=== PATIENT | male | born 1960 | race Caucasian/White ===

== ENCOUNTER 2019-12-12 11:24 | Inpatient (IN) | payer OTHER, SELFPAY ==
[~2019-12-12] VITALS: Ht 175.3 cm; Wt 140.2 kg
[2019-12-12 12:08] LABS: BASOPHIL % 0.8 % (0-2); PLATELET COUNT 178 x10^3mcL (130-400); RED CELL DISTRIBUTION WIDTH 13.3 % (11.5-14.5)
[2019-12-12 12:31] LABS: CALCIUM 8.8 mg/dL (8.5-10.1); CARBON DIOXIDE 25.2 mmol/L (21-32); CHLORIDE SERUM 93 mmol/L (98-107); CREATININE SERUM 0.9 mg/dL (0.7-1.3); GFR1 > 60 mL/min; GLUCOSE SERUM 116 mg/dL (74-106); POTASSIUM SERUM 3.7 mmol/L (3.5-5.1); SODIUM SERUM 129 mmol/L (136-145)
[2019-12-12 12:37] LABS: ALBUMIN 3.6 g/dL (3.4-5.0); ALKALINE PHOSPHATASE 54 U/L (46-116); ALT/SGPT 81 U/L (16-63); AST/SGOT 61 U/L (15-37); BILIRUBIN TOTAL 0.5 mg/dL (0.20-1.00); TOTAL PROTEIN, SERUM 7.3 g/dL (6.4-8.2)
[2019-12-12 12:41] LABS: UA SPECIFIC GRAVITY 1.025 (1.005-1.035); microscopic required? YES; urine erythrocyte TRACE (NEGATIVE)
[2019-12-12 12:58] LABS: AMPHETAMINE QUAL UR NONE DETECTED (See below)
[2019-12-12 13:03] LABS: CK-MB 0.9 ng/mL (0-3.6)
[2019-12-12 14:38] LABS: C REACTIVE PROTEIN 4.9 mg/dL (<=0.9); MAGNESIUM 1.9 mg/dL (1.8-2.4)
[2019-12-12 14:39] LABS: CHOLESTEROL/HDL RATIO 2.6
[2019-12-12 15:40] VITALS: Ht 175.3 cm; Wt 140.2 kg
[2019-12-12 15:56] VITALS: BP 133/75
[2019-12-12 21:06] VITALS: BP 135/82
[2019-12-13] VITALS (8 sets, daily range): BP systolic 105–141; BP diastolic 52–85
[2019-12-13] MEDS ORDERED: BAYER ASPIRIN R81 MG PO (14:28)
[2019-12-13] MEDS ORDERED: PLAVIX75 M1 PO (14:29)
[2019-12-13] MEDS ORDERED: LIPITOR40 MG PO (14:30)
[2019-12-13] MEDS ORDERED: V5 PO (14:30)
[2019-12-13] MEDS ORDERED: METFORMIN HCL1000 M2 PO (14:31)
[2019-12-13] MEDS ORDERED: TOPROL XL100 MG PO (14:33)
[2019-12-13 18:28] LABS: ALBUMIN 3.1 g/dL (3.4-5.0); BILIRUBIN DIRECT 0.2 mg/dL (0.0-0.2); BILIRUBIN TOTAL 0.51 mg/dL (0.20-1.00); TOTAL PROTEIN, SERUM 7.6 g/dL (6.4-8.2)
[2019-12-14] VITALS (8 sets, daily range): BP systolic 92–140; BP diastolic 53–68
[2019-12-14 07:34] LABS: PLATELET COUNT 193 x10^3mcL (130-400); RED CELL DISTRIBUTION WIDTH 13.1 % (11.5-14.5)
[2019-12-14 07:58] LABS: BASOPHIL % 0 % (0-2)
[2019-12-14 08:23] LABS: CALCIUM 9.2 mg/dL (8.5-10.1); CARBON DIOXIDE 26.8 mmol/L (21-32); CHLORIDE SERUM 97 mmol/L (98-107); CREATININE SERUM 0.7 mg/dL (0.7-1.3); GFR1 > 60 mL/min; GLUCOSE SERUM 109 mg/dL (74-106); PHOSPHOROUS 2.9 mg/dL (2.5-4.9); POTASSIUM SERUM 3.6 mmol/L (3.5-5.1); SODIUM SERUM 133 mmol/L (136-145)
[2019-12-14 08:25] LABS: BILIRUBIN DIRECT 0.14 mg/dL (0.0-0.2); BILIRUBIN TOTAL 0.4 mg/dL (0.20-1.00); TOTAL PROTEIN, SERUM 6.7 g/dL (6.4-8.2)
[2019-12-14 08:26] LABS: ALBUMIN 3.1 g/dL (3.4-5.0)
[2019-12-15 06:02] VITALS: BP 95/54
[2019-12-15 07:08] LABS: BILIRUBIN DIRECT 0.17 mg/dL (0.0-0.2); BILIRUBIN TOTAL 0.5 mg/dL (0.20-1.00); TOTAL PROTEIN, SERUM 6.8 g/dL (6.4-8.2)
[2019-12-15 07:23] LABS: CALCIUM 9.5 mg/dL (8.5-10.1); CARBON DIOXIDE 30.3 mmol/L (21-32); CHLORIDE SERUM 98 mmol/L (98-107); CREATININE SERUM 0.7 mg/dL (0.7-1.3); GFR1 > 60 mL/min; GLUCOSE SERUM 94 mg/dL (74-106); MAGNESIUM 2.2 mg/dL (1.8-2.4); PHOSPHOROUS 3.7 mg/dL (2.5-4.9); POTASSIUM SERUM 3.6 mmol/L (3.5-5.1); SODIUM SERUM 135 mmol/L (136-145)
[2019-12-15 07:30] LABS: ALBUMIN 2.7 g/dL (3.4-5.0)
[2019-12-15 09:03] VITALS: BP 97/43
[2019-12-15 09:19] LABS: BASOPHIL % 0.1 % (0-2); PLATELET COUNT 219 x10^3mcL (130-400); RED CELL DISTRIBUTION WIDTH 13.7 % (11.5-14.5)
[2019-12-15 12:55] VITALS: BP 118/70
[2019-12-15 17:22] VITALS: BP 114/81
[2019-12-15 21:12] VITALS: BP 120/61
[2019-12-16 05:24] VITALS: BP 106/46
[2019-12-16 07:05] LABS: BASOPHIL % 0.1 % (0-2); PLATELET COUNT 289 x10^3mcL (130-400); RED CELL DISTRIBUTION WIDTH 13.5 % (11.5-14.5)
[2019-12-16 07:32] LABS: CALCIUM 9.3 mg/dL (8.5-10.1); CHLORIDE SERUM 97 mmol/L (98-107); CREATININE SERUM 0.7 mg/dL (0.7-1.3); GFR1 > 60 mL/min; GLUCOSE SERUM 88 mg/dL (74-106); POTASSIUM SERUM 3.1 mmol/L (3.5-5.1); SODIUM SERUM 135 mmol/L (136-145)
[2019-12-16 07:49] LABS: BILIRUBIN DIRECT 0.17 mg/dL (0.0-0.2); BILIRUBIN TOTAL 0.5 mg/dL (0.20-1.00); TOTAL PROTEIN, SERUM 7.2 g/dL (6.4-8.2)
[2019-12-16 08:11] VITALS: BP 103/83
[2019-12-16 08:12] LABS: ALBUMIN 2.9 g/dL (3.4-5.0)
[2019-12-16 12:53] VITALS: BP 114/80
[2019-12-16 16:11] VITALS: BP 126/78
[2019-12-16 19:30] VITALS: BP 92/59
[2019-12-17 06:03] VITALS: BP 107/72
[2019-12-17 07:15] LABS: C REACTIVE PROTEIN 3.6 mg/dL (<=0.9); CALCIUM 8.7 mg/dL (8.5-10.1); CARBON DIOXIDE 24.9 mmol/L (21-32); CHLORIDE SERUM 100 mmol/L (98-107); CREATININE SERUM 0.7 mg/dL (0.7-1.3); GFR1 > 60 mL/min; GLUCOSE SERUM 98 mg/dL (74-106); POTASSIUM SERUM 3.1 mmol/L (3.5-5.1); SODIUM SERUM 132 mmol/L (136-145)
[2019-12-17 07:17] LABS: RED CELL DISTRIBUTION WIDTH 13.5 % (11.5-14.5)
[2019-12-17 07:34] LABS: PLATELET COUNT 426 x10^3mcL (130-400)
[2019-12-17 07:47] LABS: BILIRUBIN DIRECT 0.23 mg/dL (0.0-0.2); BILIRUBIN TOTAL 0.65 mg/dL (0.20-1.00); TOTAL PROTEIN, SERUM 6.4 g/dL (6.4-8.2)
[2019-12-17 07:48] LABS: ALBUMIN 2.5 g/dL (3.4-5.0)
[2019-12-17 08:46] VITALS: BP 101/57
[2019-12-17 11:41] LABS: BAND NEUTROPHIL 2 % (0-10); MONOCYTE 4 % (0-7); SEGMENTED NEUTROPHILS 89 % (37-75); rbc morphology (normal/abnorm) NORMAL (NORMAL)
[2019-12-17 13:07] VITALS: BP 109/58
[2019-12-17 17:08] VITALS: BP 104/61
[2019-12-17 20:35] VITALS: BP 110/61
[2019-12-18 05:40] VITALS: BP 101/49
[2019-12-18 06:47] LABS: PLATELET COUNT 369 x10^3mcL (130-400); RED CELL DISTRIBUTION WIDTH 13.4 % (11.5-14.5)
[2019-12-18 06:56] LABS: C REACTIVE PROTEIN 11.8 mg/dL (<=0.9); CARBON DIOXIDE 26.3 mmol/L (21-32); CHLORIDE SERUM 99 mmol/L (98-107); CREATININE SERUM 0.6 mg/dL (0.7-1.3); GFR1 > 60 mL/min; GLUCOSE SERUM 95 mg/dL (74-106); POTASSIUM SERUM 3.5 mmol/L (3.5-5.1); SODIUM SERUM 134 mmol/L (136-145)
[2019-12-18 07:01] LABS: BILIRUBIN DIRECT 0.27 mg/dL (0.0-0.2); BILIRUBIN TOTAL 0.68 mg/dL (0.20-1.00); TOTAL PROTEIN, SERUM 6.6 g/dL (6.4-8.2)
[2019-12-18 07:04] LABS: BASOPHIL % 0 % (0-2)
[2019-12-18 07:07] LABS: ALBUMIN 2.5 g/dL (3.4-5.0)
[2019-12-18 08:20] VITALS: BP 108/65
[2019-12-18 13:16] VITALS: BP 102/56
[2019-12-18 16:54] VITALS: BP 104/73
[2019-12-18 21:58] VITALS: BP 107/71
[2019-12-19 06:28] VITALS: BP 99/64
[2019-12-19 07:05] LABS: RED CELL DISTRIBUTION WIDTH 13.5 % (11.5-14.5)
[2019-12-19 07:15] LABS: BASOPHIL % 0 % (0-2); PLATELET COUNT 406 x10^3mcL (130-400)
[2019-12-19 07:19] LABS: C REACTIVE PROTEIN 9.4 mg/dL (<=0.9); CALCIUM 8.9 mg/dL (8.5-10.1); CARBON DIOXIDE 28.7 mmol/L (21-32); CHLORIDE SERUM 104 mmol/L (98-107); CREATININE SERUM 0.6 mg/dL (0.7-1.3); GFR1 > 60 mL/min; GLUCOSE SERUM 110 mg/dL (74-106); POTASSIUM SERUM 3.8 mmol/L (3.5-5.1); SODIUM SERUM 137 mmol/L (136-145)
[2019-12-19 08:28] VITALS: BP 111/57
[2019-12-19 11:56] VITALS: BP 109/56
[2019-12-19 15:43] VITALS: BP 117/58
[2019-12-19 21:02] VITALS: BP 127/66
[2019-12-20 06:11] VITALS: BP 103/59
[2019-12-20 06:37] LABS: C REACTIVE PROTEIN 4.1 mg/dL (<=0.9); CALCIUM 8.9 mg/dL (8.5-10.1); CARBON DIOXIDE 29.9 mmol/L (21-32); CHLORIDE SERUM 104 mmol/L (98-107); CREATININE SERUM 0.7 mg/dL (0.7-1.3); GFR1 > 60 mL/min; GLUCOSE SERUM 124 mg/dL (74-106); POTASSIUM SERUM 3.8 mmol/L (3.5-5.1); SODIUM SERUM 137 mmol/L (136-145)
[2019-12-20 06:46] LABS: BASOPHIL % 0.1 % (0-2); RED CELL DISTRIBUTION WIDTH 13.4 % (11.5-14.5)
[2019-12-20 07:25] LABS: PLATELET COUNT 484 x10^3mcL (130-400)
[2019-12-20 09:51] VITALS: BP 119/73
[2019-12-20 13:40] VITALS: BP 110/70
[2019-12-20 17:00] VITALS: BP 113/71; BP 113/79
[2019-12-20 20:45] VITALS: BP 111/58
[2019-12-21 06:40] VITALS: BP 122/73
[2019-12-21 06:45] LABS: BASOPHIL % 0.6 % (0-2); RED CELL DISTRIBUTION WIDTH 13.4 % (11.5-14.5)
[2019-12-21 07:23] LABS: CALCIUM 9.1 mg/dL (8.5-10.1); CARBON DIOXIDE 31.1 mmol/L (21-32); CHLORIDE SERUM 103 mmol/L (98-107); CREATININE SERUM 0.7 mg/dL (0.7-1.3); GFR1 > 60 mL/min; GLUCOSE SERUM 118 mg/dL (74-106); POTASSIUM SERUM 4.1 mmol/L (3.5-5.1); SODIUM SERUM 138 mmol/L (136-145)
[2019-12-21 08:37] LABS: PLATELET COUNT 529 x10^3mcL (130-400)
[2019-12-21 09:22] VITALS: BP 145/85
[2019-12-21 13:30] VITALS: BP 120/61
[2019-12-21 17:28] VITALS: BP 124/76
[2019-12-21 20:52] VITALS: BP 144/87
[2019-12-22 05:36] VITALS: BP 102/53
[2019-12-22 07:36] LABS: BASOPHIL % 0.3 % (0-2); PLATELET COUNT 588 x10^3mcL (130-400); RED CELL DISTRIBUTION WIDTH 13.4 % (11.5-14.5)
[2019-12-22 07:40] LABS: CALCIUM 9.4 mg/dL (8.5-10.1); CARBON DIOXIDE 25.9 mmol/L (21-32); CHLORIDE SERUM 101 mmol/L (98-107); CREATININE SERUM 0.8 mg/dL (0.7-1.3); GFR1 > 60 mL/min; GLUCOSE SERUM 129 mg/dL (74-106); POTASSIUM SERUM 4.1 mmol/L (3.5-5.1); SODIUM SERUM 135 mmol/L (136-145)
[2019-12-22 08:26] VITALS: BP 117/79
[2019-12-22 11:59] VITALS: BP 101/61
[2019-12-22 16:33] VITALS: BP 95/55
[2019-12-22 20:08] VITALS: BP 142/68
[2019-12-23 05:47] VITALS: BP 131/77
[2019-12-23 06:27] LABS: BASOPHIL % 0.3 % (0-2)
[2019-12-23 06:35] LABS: C REACTIVE PROTEIN 0.9 mg/dL (<=0.9); CALCIUM 9.4 mg/dL (8.5-10.1); CHLORIDE SERUM 101 mmol/L (98-107); CREATININE SERUM 0.8 mg/dL (0.7-1.3); GFR1 > 60 mL/min; GLUCOSE SERUM 117 mg/dL (74-106); POTASSIUM SERUM 4.4 mmol/L (3.5-5.1); SODIUM SERUM 136 mmol/L (136-145)
[2019-12-23 06:56] LABS: PLATELET COUNT 603 x10^3mcL (130-400)
[2019-12-23 08:43] VITALS: BP 114/81
[2019-12-23 11:59] VITALS: BP 114/48
[2019-12-23 16:31] VITALS: BP 116/58
[2019-12-23 21:05] VITALS: BP 103/68
[2019-12-24 05:50] VITALS: BP 95/51
[2019-12-24 08:20] VITALS: BP 134/77
[2019-12-24 12:06] VITALS: BP 102/72
[2019-12-24 18:22] VITALS: BP 104/66
[2019-12-24 20:49] VITALS: BP 117/63
[2019-12-25 05:36] VITALS: BP 108/73
[2019-12-25 08:30] VITALS: BP 104/37
[2019-12-25 12:49] VITALS: BP 106/71
[2019-12-25 16:36] VITALS: BP 116/74
[2019-12-25 20:45] VITALS: BP 123/76
[2019-12-26 07:17] VITALS: BP 113/78; BP 173/79
[2019-12-26] MEDS ORDERED: LOP50 PO (08:56)
[2019-12-26] MEDS ORDERED: V2 PO (08:56)
[2019-12-26] MEDS ORDERED: DECADRON4 MG PO (08:56)
[2019-12-26] MEDS ORDERED: VENTOLIN H0.09 MG/A1 INH (08:56)
[2019-12-26] MEDS ORDERED: LIPITOR20 MG PO (08:56)
[2019-12-26 09:31] VITALS: BP 131/79
[2019-12-26 12:36] VITALS: BP 105/66
[2019-12-26 13:06] VITALS: BP 105/66
== END 2019-12-26 13:40 | disposition home or self-care (01) | DRG 177 ==
LOC: ED 11:24 → DU 13:52
PROVIDERS: Emergency Medicine; Internal Medicine Critical Care Medicine; Student in an Organized Health Care Education/Training Program; ADMIT Family Medicine; ATTEND Family Medicine
PROC: XW13325 Transfusion of Convalescent Plasma (Nonautologous) into Peripheral Vein, Percutaneous Approach, New Technology Group 5 (ICD-10-PCS; principal; 2019-12-13)
PROC: XW033E5 Introduction of Remdesivir Anti-infective into Peripheral Vein, Percutaneous Approach, New Technology Group 5 (ICD-10-PCS; 2019-12-13)
DX: U07.1 COVID-19 (principal); J18.9 Pneumonia, unspecified organism; J96.01 Acute respiratory failure with hypoxia; E87.1 Hypo-osmolality and hyponatremia; Z68.43 Body mass index [BMI] 50.0-59.9, adult; R74.01 Elevation of levels of liver transaminase levels; I10 Essential (primary) hypertension; E11.9 Type 2 diabetes mellitus without complications; E66.01 Morbid (severe) obesity due to excess calories; E78.00 Pure hypercholesterolemia, unspecified; E87.6 Hypokalemia; E78.5 Hyperlipidemia, unspecified; I25.10 Atherosclerotic heart disease of native coronary artery without angina pectoris; I25.2 Old myocardial infarction; Z88.8 Allergy status to other drugs, medicaments and biological substances; Z88.0 Allergy status to penicillin; Z95.818 Presence of other cardiac implants and grafts; Z79.84 Long term (current) use of oral hypoglycemic drugs; Z79.899 Other long term (current) drug therapy; Z79.82 Long term (current) use of aspirin; Z79.01 Long term (current) use of anticoagulants; Z83.3 Family history of diabetes mellitus
CPT/HCPCS: 36600; 82962; 83880; 85378; 87046; 87046-59; 87804; G0378; J1100; J1644; J1650; J1815; J2405; J3480; J3535; J7030; J7050; Q0092; Q0163; U0003